=== PATIENT | male | born 1980 | race Caucasian/White ===

== ENCOUNTER 2016-08-16 21:18 | Emergency (ER) | payer BC ==
[2016-08-16 21:42] LABS: ABSOLUTE BASOPHILS # (AUTO) 0.1 10^3/uL (0.0-0.2); ABSOLUTE EOSINOPHILS # (AUTO) 0.3 10^3/uL (0.0-0.6); ABSOLUTE LYMPHOCYTES (AUTO) 2.7 10^3/uL (0.5-4.7); ABSOLUTE MONOCYTES (AUTO) 0.7 10^3/uL (0.1-1.4); ABSOLUTE NEUT (AUTO) 6.5 10^3/uL (1.7-8.2); BASOPHILS % (AUTO) 1.1 % (0-2); EOSINOPHILS % (AUTO) 2.8 % (0-6); HEMATOCRIT 43.6 % (37.9-51.0); HEMOGLOBIN 14.5 g/dL (13.5-17.0); HGB HCT DIFFERENCE -0.1; LYMPHOCYTES % (AUTO) 26.1 % (13-45); MEAN CORPUSCULAR HEMOGLOBIN 29.7 pg (27.0-33.4); MEAN CORPUSCULAR HGB CONC 33.2 g/dL (32.0-36.0); MEAN CORPUSCULAR VOLUME 90 fl (80-97); MONOCYTES % (AUTO) 7.2 % (3-13); RED BLOOD COUNT 4.87 10^6/uL (4.35-5.55); RED CELL DISTRIBUTION WIDTH 14.5 % (11.5-14.0); SEGMENTED NEUTROPHILS % (AUTO) 62.8 % (42-78); WHITE BLOOD COUNT 10.3 10^3/uL (4.0-10.5)
[2016-08-16 21:56] LABS: APPEARANCE,URINE CLEAR; BILIRUBIN,URINE NEGATIVE (NEGATIVE); GLUCOSE, URINE NEGATIVE (NEGATIVE); KETONES,URINE TRACE mg/dL (NEGATIVE); LEUKOCYTE ESTERASE,URINE NEGATIVE (NEGATIVE); NITRITE,URINE NEGATIVE (NEGATIVE); PROTEIN,URINE NEGATIVE (NEGATIVE); URINE SPECIFIC GRAVITY 1.009; UROBILINOGEN,URINE NEGATIVE mg/dL (<2.0)
[2016-08-16 22:02] LABS: ALANINE AMINOTRANSFERASE 40 U/L (21-72); ALCOHOL 204 mg/dL (NONE DETECTED); ALKALINE PHOSPHATASE 94 U/L (38-126); ASPARTATE AMINO TRANSFERASE 36 U/L (17-59); BILIRUBIN,TOTAL 0.4 mg/dL (0.2-1.3); BLOOD UREA NITROGEN 18 mg/dL (7-20); CALCIUM 9.5 mg/dL (8.4-10.2); CREATININE RESULT 0.95 mg/dL (0.52-1.25); GLUCOSE 96 mg/dL (75-110); TOTAL PROTEIN 8.3 g/dL (6.3-8.2)
[2016-08-16 22:11] LABS: URINE BARBITURATES SCREEN NEGATIVE; URINE METHADONE SCREEN NEGATIVE; URINE OPIATES LOW NEGATIVE; URINE PHENCYCLIDINE SCREEN NEGATIVE
[2016-08-16 22:11] LABS: ANION GAP 19 (5-19); CARBON DIOXIDE 22 mmol/L (22-30); CHLORIDE 106 mmol/L (98-107); POTASSIUM 4.6 mmol/L (3.6-5.0); SODIUM 146.6 mmol/L (137-145)
--- NOTE | 2016-08-16 22:18 | EKG REPORT ---
SEVERITY:- OTHERWISE NORMAL ECG - SINUS TACHYCARDIA : Confirmed by: Geoff Venegas 16-Aug-2016 22:17:51
--- NOTE | 2016-08-17 04:53 | ER Document Report ---
ED General - General TRAVEL OUTSIDE OF THE U.S. IN LAST 30 DAYS: No <SUKHJINDER WEBB - Last Filed: 08/17/16 04:53> <DARRYN MARTIN - Last Filed: 08/17/16 09:58> - General Chief Complaint: Psych Problem Stated Complaint: SUICIDAL IDEATION Notes: Patient is a 35-year-old male presents with complaints of self-induced cutting tools the forearm. Patient says that he recently threw divorce. He's been depressed. He says he did cut himself. He says that "I do not want to kill myself, but I don't necessarily want to live either.". He denies taking any overdose medications. Denies cutting himself to try to kill himself. Says it is more of a emotional release. He has no other complaints at this time. Patient's last tetanus shot was one year ago. (SUKHJINDER WEBB) - Related Data Allergies/Adverse Reactions: ibuprofen [From Motrin] Allergy (Unknown, Verified 08/17/16 08:03) Past Medical History - Social History Smoking Status: Unknown if Ever Smoked Frequency of alcohol use: Occasional Drug Abuse: None Family History: Hyperlipidemia, Hypertension Musculoskeltal Medical History: Reports Hx Fibromyalgia Psychiatric Medical History: Reports: Hx Anxiety - GORDON and panic attacks, Hx Depression - Major depressive disorder Past Surgical History: Reports: Hx Oral Surgery - wisdom, Other - Glands removed from right breast due to gynecomastia benign <SUKHJINDER WEBB - Last Filed: 08/17/16 04:53> Review of Systems <SUKHJINDER WEBB - Last Filed: 08/17/16 04:53> <DARRYN MARTIN - Last Filed: 08/17/16 09:58> - Review of Systems Notes: My Normal Review Basic REVIEW OF SYSTEMS: CONSTITUTIONAL : Denies fever, chills, or sweats. Denies recent illness. EENT: Denies eye, ear, throat, or mouth pain or symptoms. Denies nasal or sinus congestion. RESPIRATORY: Denies cough, cold, or chest congestion. Denies shortness of breath, difficulty breathing, or wheezing. GASTROINTESTINAL: Denies abdominal pain. Denies nausea, vomiting, or diarrhea. Denies constipation. Last BM: MUSCULOSKELETAL: Denies neck or back pain or joint pain or swelling. SKIN: Denies rash or skin lesions. NEUROLOGICAL: Denies altered mental status or loss of consciousness. Denies headache. Denies weakness or paralysis or loss of use of either side. Denies problems with gait or speech. Denies sensory or motor loss. PSYCHIATRIC: Depression. ALL OTHER SYSTEMS REVIEWED AND NEGATIVE. (SUKHJINDER WEBB) Physical Exam <SUKHJINDER WEBB - Last Filed: 08/17/16 04:53> <DARRYN MARTIN - Last Filed: 08/17/16 09:58> - Vital signs Vitals: Temp Pulse Resp BP Pulse Ox 98.2 F 116 H 16 117/70 95 08/16/16 21:25 08/16/16 21:25 08/16/16 21:25 08/16/16 21:25 08/16/16 21:25 (SUKHJINDER WEBB) (DARRYN MARTIN) - Notes Notes: General Appearance: Well nourished, alert, cooperative, no acute distress, no obvious discomfort. Vitals: reviewed, See vital signs table. Head: no swelling or tenderness to the head Eyes: PERRL, EOMI, Conjuctiva clear Mouth: No decreasd moisture Neck: Supple, no neck tenderness, No thyromegaly Lungs: No wheezing, No rales, No rhonci, No accessory muscle use, good air exchange bilaterally. Heart: Normal rate, Regular rythm, No murmur, no rub Abdomen: Normal BS, soft, No rigidity, No abdominal tenderness, No guarding, no rebound, no abdominal masses, no organomegaly Extremities: strength 5/5 in all extremities, good pulses in all extremities, no swelling or tenderness in the extremities, no edema. Skin: warm, dry, appropriate color, no rash. Multiple superficial abrasions over left forearm. All the abrasions are superficial and do not require suturing. Neuro: speech clear, oriented x 3, normal affect, responds appropriately to questions. (SUKHJINDER WEBB) Course - Laboratory Result Diagrams: 08/16/16 21:36 08/16/16 21:36 <SUKHJINDER WEBB - Last Filed: 08/17/16 04:53> - Laboratory Result Diagrams: 08/16/16 21:36 08/16/16 21:36 <DARRYN MARTIN - Last Filed: 08/17/16 09:58> - Vital Signs Vital signs: Temp Pulse Resp BP Pulse Ox 97.9 F 79 17 125/88 H 99 08/17/16 06:31 08/17/16 06:31 08/17/16 06:31 08/17/16 06:31 08/17/16 06:31 (SUKHJINDER WEBB) (DARRYN MARTIN) - Laboratory Laboratory results interpreted by me: 08/16/16 08/16/16 08/16/16 21:36 21:36 21:42 RDW 14.5 H Sodium 146.6 H Total Protein 8.3 H Urine Ketones TRACE H Salicylates < 1.0 L Acetaminophen < 10 L (SUKHJINDER WEBB) (DARRYN MARTIN) - Transfer of Care Notes: 08/17/16 04:52 Patient looks well. He's been very cooperative with me. He does agree to psychiatry. He is voluntary. I do not see a need for involuntary commitment paperwork at this time. Patient is medically stable for psychiatric evaluation. (SUKHJINDER WEBB) Discharge <SUKHJINDER WEBB - Last Filed: 08/17/16 04:53> <DARRYN MARTIN - Last Filed: 08/17/16 09:58> - Discharge Clinical Impression: Abrasion Depression Qualifiers: Depression Type: unspecified Qualified Code(s): F32.9 - Major depressive disorder, single episode, unspecified Condition: Stable Disposition: HOME, SELF-CARE Additional Instructions: DEPRESSION: Your evaluation reveals that you have mental depression. While symptoms may be vague, they often include disturbance of sleep, fatigue, loss of appetite , and general loss of interest in life. While depression may be a side effect of drugs, or a reaction to a major change in your life, many cases have no known cause. If depression is acute, and related to a major loss in your life, you can expect it to clear completely with time. If you have been depressed a long time , are prone to repeated bouts of depression or low mood, or have been thinking of suicide, get help. Depression can be treated with anti-depressant medication and counselling. Long-term depression will often take a few weeks to clear, even with appropriate medication. Follow-up care is important. SUICIDAL IDEATION: Suicidal ideation is a common medical term for thoughts about suicide, which may be as detailed as a formulated plan, without the suicidal act itself. Although most people who undergo suicidal ideation do not commit suicide, some go on to make suicide attempts. The range of suicidal ideation varies greatly from fleeting to detailed planning, role playing, and unsuccessful attempts. While thoughts about suicide are common, most people do not carry out serious actions to commit suicide. Based upon your evaluation and discussion with you, we do not believe you are currently at risk to act upon your thoughts of suicide. You have agreed to return to the Emergency Department, at any time , if you feel inclined to act upon your suicidal thoughts. ACUTE ALCOHOL INTOXICATION and ALCOHOL ABUSE: Your evaluation revealed very high levels of alcohol. You can from drinking a large amount of alcohol rapidly! Further, there's the risk of falls , traffic accidents, and fights. A high portion (about 50 percent) of the serious injuries seen in hospital emergency rooms are caused by alcohol. Alcohol overdosage is usually due to an underlying emotional or psychiatric problem. You may benefit from counselling. If "binge" drinking is an ongoing problem for you, or if you drink ANY AMOUNT of alcohol EVERY day, you most likely have a tendency to alcoholism. You should avoid alcohol totally. We can refer you for treatment. Persons with alcohol problems are often also prone to other addictions -- you should discuss any use of medications or drugs with the doctor. You should be watched at home for the next several hours by someone who has not been drinking. Get extra fluids for the next 24 hours. Call the doctor if there is repeated vomiting, increasing headache, decreasing level of alertness, or any other worsening. FOLLOW-UP CARE: If you have been referred to a physician for follow-up care, call the physician s office for an appointment as you were instructed or within the next two days. If you experience worsening or a significant change in your symptoms, notify the physician immediately or return to the Emergency Department at any time for re-evaluation. Resume taking your Zoloft and Effexor as hefore. Follow up with outpatient mental health of choice.
[2016-08-17] MEDS ORDERED: VENLAFAXINE HCL 75 MG TABLET PO ONE (08:21)
[2016-08-17] MEDS ORDERED: SERTRALINE HCL 50 MG TABLET PO ONE (08:21)
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
[2016-08-17 10:09] VITALS: BP 125/72
== END 2016-08-17 10:20 | disposition home or self-care (01) ==
LOC: ER 21:18
DX: S50.812A Abrasion of left forearm, initial encounter (principal); X78.1XXA Intentional self-harm by knife, initial encounter; Y93.89 Activity, other specified; F32.9 Major depressive disorder, single episode, unspecified; Z63.5 Disruption of family by separation and divorce; Z88.6 Allergy status to analgesic agent
CPT/HCPCS: 36415; 80053; 80307; 81001; 85025; 93005; 93010; 99285

== ENCOUNTER 2016-11-07 16:31 | Emergency (ER) | payer SELFPAY ==
--- NOTE | 2016-11-07 17:16 | ER Document Report ---
ED Medical Screen (RME) - General Chief Complaint: Headache Stated Complaint: HEADACHE Mode of Arrival: Ambulatory Information source: Patient Notes: This is a 35-year-old male who presents with severe headache. He states that the headache as been worsening for 3 weeks. He states that he does have a history of migraines but has never had one this bad that has lasted this long. He denies any fevers or chills. No neck pain or neck stiffness. He has had nausea and vomiting and had to leave work for this today. He states he has never had imaging of his head. Denies paresthesias or weakness. Denies vision changes other than photophobia. I have greeted and performed a rapid initial assessment of this patient. A comprehensive ED assessment and evaluation of the patient, analysis of test results and completion of the medical decision making process will be conducted by additional ED providers. TRAVEL OUTSIDE OF THE [place] IN LAST 30 DAYS: No - Related Data Allergies/Adverse Reactions: ibuprofen [From Motrin] Allergy (Unknown, Verified 08/17/16 08:03) Past Medical History Renal/ Medical History: Denies: Hx Peritoneal Dialysis Musculoskeltal Medical History: Reports Hx Fibromyalgia Psychiatric Medical History: Reports: Hx Anxiety - GORDON and panic attacks, Hx Depression - Major depressive disorder Past Surgical History: Reports: Hx Oral Surgery - wisdom, Other - Glands removed from right breast due to gynecomastia benign Physical Exam - Vital signs Vitals: Temp Pulse Resp BP Pulse Ox 98.2 F 105 H 14 119/77 98 11/07/16 16:34 11/07/16 16:34 11/07/16 16:34 11/07/16 16:34 11/07/16 16:34 Course - Vital Signs Vital signs: Temp Pulse Resp BP Pulse Ox 98.2 F 105 H 14 119/77 98 11/07/16 16:34 11/07/16 16:34 11/07/16 16:34 11/07/16 16:34 11/07/16 16:34 - Laboratory Result Diagrams: 11/07/16 17:15 11/07/16 17:15 Laboratory results interpreted by me: 11/07/16 17:15 Glucose 117 H Doctor's Discharge - Discharge Clinical Impression: Headache Condition: Stable Disposition: HOME, SELF-CARE Instructions: Intravenous Compazine for Headaches ([facility]), Use of Diphenhydramine , Headache ([facility]), Toradol Injection ([facility]) Additional Instructions: Your labs and head CT were negative You were given IV fluids, Toradol, Compazine and Benadryl for your headache Take Fioricet as needed if headache returns Rest and hydrate Follow up with primary care if headache persists Prescriptions: Butalb/Acetaminophen/Caffeine [Fioricet (50-325-40 mg) Tablet] 1 - 2 tab PO Q4HP PRN #30 tab PRN Reason: Promethazine HCl [Phenergan 25 mg Tablet] 25 mg PO Q6H PRN #15 tablet PRN Reason: Forms: Return to Work
[2016-11-07 17:35] LABS: ABSOLUTE EOSINOPHILS # (AUTO) 0.1 10^3/uL (0.0-0.6); ABSOLUTE LYMPHOCYTES (AUTO) 1.3 10^3/uL (0.5-4.7); ABSOLUTE MONOCYTES (AUTO) 0.5 10^3/uL (0.1-1.4); ABSOLUTE NEUT (AUTO) 4.5 10^3/uL (1.7-8.2); BASOPHILS % (AUTO) 0.8 % (0-2); EOSINOPHILS % (AUTO) 1.8 % (0-6); HEMATOCRIT 43.5 % (37.9-51.0); HEMOGLOBIN 14.8 g/dL (13.5-17.0); HGB HCT DIFFERENCE 0.9; LYMPHOCYTES % (AUTO) 20.7 % (13-45); MEAN CORPUSCULAR HEMOGLOBIN 30.5 pg (27.0-33.4); MEAN CORPUSCULAR HGB CONC 34.1 g/dL (32.0-36.0); MEAN CORPUSCULAR VOLUME 90 fl (80-97); MONOCYTES % (AUTO) 7.6 % (3-13); RED BLOOD COUNT 4.86 10^6/uL (4.35-5.55); RED CELL DISTRIBUTION WIDTH 13.8 % (11.5-14.0); SEGMENTED NEUTROPHILS % (AUTO) 69.1 % (42-78); WHITE BLOOD COUNT 6.5 10^3/uL (4.0-10.5)
[2016-11-07] MEDS ORDERED: KETOROLAC TROMETHAMINE INJ/PF 30 MG/1 ML SDV IV ONE (17:49)
[2016-11-07] MEDS ORDERED: PROCHLORPERAZINE EDISYLATE INJ 10 MG/2 ML VIAL IV ONE (17:49)
[2016-11-07] MEDS ORDERED: DIPHENHYDRAMINE HCL 50 MG/ML VIAL IV ONE (17:49)
[2016-11-07] MEDS ORDERED: NORMAL SALINE 1000 ML 1,000 ML IV PRN (17:51)
[2016-11-07 17:59] LABS: ALANINE AMINOTRANSFERASE 23 U/L (21-72); ALBUMIN 4.5 g/dL (3.5-5.0); ALKALINE PHOSPHATASE 63 U/L (38-126); ANION GAP 14 (5-19); ASPARTATE AMINO TRANSFERASE 21 U/L (17-59); BILIRUBIN,DIRECT 0.2 mg/dL (0.0-0.4); BILIRUBIN,TOTAL 0.5 mg/dL (0.2-1.3); BLOOD UREA NITROGEN 12 mg/dL (7-20); CALCIUM 9.5 mg/dL (8.4-10.2); CARBON DIOXIDE 27 mmol/L (22-30); CHLORIDE 103 mmol/L (98-107); GLUCOSE 117 mg/dL (75-110); SODIUM 143.5 mmol/L (137-145); TOTAL PROTEIN 7.4 g/dL (6.3-8.2)
--- NOTE | 2016-11-07 18:23 | ER Document Report ---
ED Headache - General Chief Complaint: Headache Stated Complaint: HEADACHE Mode of Arrival: Ambulatory Notes: 35 yo male c/o headache x 3 weeks. pulsatile, left temporal. worse than typical headache. usually gets relief with OTC Excedrin. No fever, no neck pain or stiffness. + nausea, no vomiting, + photosensitivity. TRAVEL OUTSIDE OF THE [place] IN LAST 30 DAYS: No - HPI Patient complains to provider of: Headache Patient reports: Occasional migraines Onset was: Gradual Timing: Still present Quality of pain: Throbbing Pain Level: 5 Associated symptoms: Nausea/vomiting, Photophobia. denies: Chills, Dizzy, Fever , Stiff neck, Trouble walking Exacerbated by: Light, Noise, Movement Similar symptoms previously: No Recently seen / treated by doctor: No - Related Data Allergies/Adverse Reactions: ibuprofen [From Motrin] Allergy (Unknown, Verified 08/17/16 08:03) Past Medical History - General Information source: Patient - Social History Smoking Status: Current Some Day Smoker Frequency of alcohol use: Rare Drug Abuse: None Lives with: Family Family History: Hyperlipidemia, Hypertension Renal/ Medical History: Denies: Hx Peritoneal Dialysis Musculoskeltal Medical History: Reports Hx Fibromyalgia Psychiatric Medical History: Reports: Hx Anxiety - GORDON and panic attacks, Hx Depression - Major depressive disorder Past Surgical History: Reports: Hx Oral Surgery - wisdom, Other - Glands removed from right breast due to gynecomastia benign - Immunizations Hx Diphtheria, Pertussis, Tetanus Vaccination: Yes Review of Systems - Review of Systems Constitutional: No symptoms reported EENT: No symptoms reported Cardiovascular: No symptoms reported Respiratory: No symptoms reported Gastrointestinal: No symptoms reported Genitourinary: No symptoms reported Male Genitourinary: No symptoms reported Musculoskeletal: No symptoms reported Skin: No symptoms reported Hematologic/Lymphatic: No symptoms reported Neurological/Psychological: No symptoms reported Physical Exam - Vital signs Vitals: Temp Pulse Resp BP Pulse Ox 98.2 F 105 H 14 119/77 98 11/07/16 16:34 11/07/16 16:34 11/07/16 16:34 11/07/16 16:34 11/07/16 16:34 Interpretation: Normal - General General appearance: Alert In distress: None - HEENT Head: Normocephalic, Atraumatic Eyes: Normal Conjunctiva: Normal Extraocular movements intact: Yes Pupils: PERRL Tympanic membrane: Normal Sinus: Normal Mucous membranes: Normal, Moist Pharynx: Normal Neck: Normal, Supple - Respiratory Respiratory status: No respiratory distress Chest status: Nontender Breath sounds: Normal Chest palpation: Normal - Cardiovascular Rhythm: Regular Heart sounds: Normal auscultation Murmur: No - Abdominal Inspection: Normal Distension: No distension Bowel sounds: Normal Tenderness: Nontender Organomegaly: No organomegaly - Back Back: Normal, Nontender - Extremities General upper extremity: Normal inspection, Nontender, Normal color, Normal ROM , Normal temperature General lower extremity: Normal inspection, Nontender, Normal color, Normal ROM , Normal temperature, Normal weight bearing. No: Sharad's sign - Neurological Neuro grossly intact: Yes Cognition: Normal Orientation: AAOx4 Bethune Coma Scale Eye Opening: Spontaneous Nolberto Coma Scale Verbal: Oriented Bethune Coma Scale Motor: Obeys Commands Nolberto Coma Scale Total: 15 Speech: Normal Motor strength normal: LUE, RUE, LLE, RLE Sensory: Normal - Psychological Associated symptoms: Normal affect, Normal mood - Skin Skin Temperature: Warm Skin Moisture: Dry Skin Color: Normal Course - Re-evaluation Re-evalutation: 11/07/16 18:28 pt evaluated. neurologically intact. no focal deficits. will medicate for pain and continue to assess 11/07/16 18:[address] negative. results reviewed with patient 11/07/16 19:20 pt resting with eyes closed 11/07/16 19:39 pt reports headache better. will DC home with Fioricet. pt stable and agreeable with plan - Vital Signs Vital signs: Temp Pulse Resp BP Pulse Ox 98.2 F 105 H 14 119/77 98 11/07/16 16:34 11/07/16 16:34 11/07/16 16:34 11/07/16 16:34 11/07/16 16:34 - Laboratory Result Diagrams: 11/07/16 17:15 11/07/16 17:15 Laboratory results interpreted by me: 11/07/16 17:15 Glucose 117 H Discharge - Discharge Clinical Impression: Headache Qualifiers: Headache type: unspecified Headache chronicity pattern: acute headache Intractability: not intractable Qualified Code(s): R51 - Headache Condition: Stable Disposition: HOME, SELF-CARE Instructions: Intravenous Compazine for Headaches ([facility]), Use of Diphenhydramine , Headache ([facility]), Toradol Injection ([facility]) Additional Instructions: Your labs and head CT were negative You were given IV fluids, Toradol, Compazine and Benadryl for your headache Take Fioricet as needed if headache returns Rest and hydrate Follow up with primary care if headache persists Prescriptions: Butalb/Acetaminophen/Caffeine [Fioricet (50-325-40 mg) Tablet] 1 - 2 tab PO Q4HP PRN #30 tab PRN Reason: Promethazine HCl [Phenergan 25 mg Tablet] 25 mg PO Q6H PRN #15 tablet PRN Reason: Forms: Return to Work
[2016-11-07 20:03] VITALS: BP 97/64
== END 2016-11-07 20:13 | disposition home or self-care (01) ==
LOC: ER 16:31
DX: R51 Headache (principal); R11.0 Nausea; H53.149 Visual discomfort, unspecified; Z88.6 Allergy status to analgesic agent; F17.200 Nicotine dependence, unspecified, uncomplicated
CPT/HCPCS: 99284; 96374; 96375; 36415; 85025; 80053; 70450; J1200; J1885; J0780